=== PATIENT | male | born 1985 | race Caucasian/White ===

== ENCOUNTER 2019-04-28 17:18 | Emergency (ER) | payer SELFPAY ==
[~2019-04-28] VITALS: Ht 193 cm; Wt 95.5 kg
[2019-04-28 17:24] VITALS: BP 144/92
== END 2019-04-28 18:11 | disposition home or self-care (01) ==
LOC: ER 17:20
DX: S30.0XXA Contusion of lower back and pelvis, initial encounter (principal); X58.XXXA Exposure to other specified factors, initial encounter; Y93.89 Activity, other specified; Y92.89 Other specified places as the place of occurrence of the external cause; Y99.9 Unspecified external cause status
CPT/HCPCS: 99281